=== PATIENT | female | born 1960 | race Caucasian/White ===

== ENCOUNTER 2021-04-02 03:16 | Outpatient (CLI) | payer BC, SELFPAY ==
[2021-04-02 16:05] LABS: Abs Immature Grans 0.01 10^3/uL (0.0-0.06); Absolute Basophil Count 0.03 10^3/uL (0.0-0.2); Absolute Eosinophil Count 0.14 10^3/uL (0.0-0.7); Absolute Monocyte Count 0.28 10^3/uL (0.1-0.8); Basophils % 0.7; Eosinophils % 3.2; HCT 38.4 % (36.0-46.0); HGB 13.5 g/dL (11.2-15.7); Immature Grans % 0.2; Lymphocytes % 16.1; MCH 30.4 pg (27.0-33.0); MCHC 35.2 % (32.0-36.0); MCV 86.5 fL (80-95); MPV 10.3 fL (8.0-11.0); Monocytes % 6.4; Neutrophils % 73.4; Nucleated RBC 0 %; Platelet Count 147 10^3/uL (130-400); RBC 4.44 10^6/uL (3.93-5.22); RDW 11.9 % (11.7-14.6); RDW-SD 37.4 fL; WBC 4.36 10^3/uL (4.4-10.8)
[2021-04-02 16:12] LABS: CREATININE 0.8 mg/dL (0.55-1.02)
== END 2021-04-02 03:17 | disposition home or self-care (01) ==
LOC: LBO 03:16
PROVIDERS: Radiology Radiation Oncology; Visit Provider Internal Medicine
DX: C54.1 Malignant neoplasm of endometrium (principal)
CPT/HCPCS: 36415; 82565; 85025

== ENCOUNTER 2021-04-21 23:39 | Outpatient (CLI) | payer BC, SELFPAY ==
[2021-04-21 13:08] LABS: Abs Immature Grans 0.03 10^3/uL (0.0-0.06); Absolute Basophil Count 0.04 10^3/uL (0.0-0.2); Absolute Eosinophil Count 0.34 10^3/uL (0.0-0.7); Absolute Lymphocyte Count 0.36 10^3/uL (1.2-3.4); Absolute Monocyte Count 0.42 10^3/uL (0.1-0.8); Absolute Neutrophil Count 4.63 10^3/uL (1.2-6.7); Basophils % 0.7; Eosinophils % 5.8; HCT 39.3 % (36.0-46.0); HGB 13.4 g/dL (11.2-15.7); Immature Grans % 0.5; Lymphocytes % 6.2; MCH 29.9 pg (27.0-33.0); MCHC 34.1 % (32.0-36.0); MCV 87.7 fL (80-95); MPV 9.7 fL (8.0-11.0); Monocytes % 7.2; Neutrophils % 79.6; Nucleated RBC 0 %; Platelet Count 207 10^3/uL (130-400); RBC 4.48 10^6/uL (3.93-5.22); RDW 12.7 % (11.7-14.6); RDW-SD 40.5 fL; WBC 5.82 10^3/uL (4.4-10.8)
== END 2021-04-21 23:40 | disposition home or self-care (01) ==
LOC: LBO 23:39
PROVIDERS: Visit Provider Radiology Radiation Oncology
DX: C54.1 Malignant neoplasm of endometrium (principal)
CPT/HCPCS: 36415; 85025

== ENCOUNTER 2021-12-01 20:15 | Outpatient (REF) | payer BC, SELFPAY ==
[2021-12-01 15:52] LABS: Bilirubin Negative (Negative); Blood Trace-intact (Negative); Clarity Clear (Clear); Glucose Negative (Negative); Ketones Negative (Negative); Leukocyte Esterase Negative (Negative); Nitrite Negative (Negative); Specific Gravity 1.015 (1.005-1.025); Urobilinogen 0.2 EU/dL (Up TO 0.2); pH 7.5 (5-8)
[2021-12-01 16:09] LABS: Bacteria Negative HPF (Negative); Epithelial Cells Few HPF (Negative); WBC 0-2 HPF (0-5)
[2021-12-01 16:10] LABS: C & S Indicated? No; Casts Negative LPF (Negative); Crystals Negative HPF (Negative); Mucus Negative (Negative)
== END 2021-12-01 20:16 | disposition home or self-care (01) ==
LOC: LBN 20:15
PROVIDERS: Visit Provider Radiology Radiation Oncology
DX: R82.998 Other abnormal findings in urine (principal)
CPT/HCPCS: 81003; 81015